=== PATIENT | female | born 2000 | race Two or more races ===

== ENCOUNTER 2024-11-23 09:17 | Emergency (ER) | payer MEDICAID, OTHER ==
[~2024-11-23] VITALS: Ht 160 cm; Wt 79.5 kg
--- NOTE | 2024-11-23 10:18 | ED.PDOC ---
GI ASSESSMENT HPI Comments A 24 YEAR OLD FEMALE PRESENTS TO THE ED WITH COMPLAINT OF CONSTIPATION AND MILD RECTAL BLEEDING. PATIENT STATES SHE HAS BEEN EXPERIENCING CONSTIPATION FOR THE PAST 4 DAYS AND NOTICED A SMALL AMOUNT OF BLOOD IN HER STOOL TODAY, PROMPTING HER TO COME TO THE ED FOR EVALUATION. PATIENT DENIES FEVER, CHILLS, SHORTNESS OF BREATH, CHEST PAIN, ABDOMINAL PAIN, NAUSEA, VOMITING, HEADACHE, OR OTHER COMPLAINTS. NO OTHER SYMPTOMS OR MODIFYING FACTORS AT THIS TIME. PATIENT IS ALERT, ORIENTED X 4, AND HAS STEADY GAIT. Chief Complaint: Constipation Time Seen by MD: 09:18 Reviewed Notes: Nurses Notes, Medications, Allergies Allergies: Coded Allergies: NO KNOWN ALLERGIES (Unverified , 11/23/24) Home Meds Active Scripts Hydrocortisone Acetate (Anusol-Hc) 25 Mg Sup, 1 SUPP IN BID, #20 SUPP Prov:LEXIS ESPOSITO 11/23/24 Ibuprofen (Ibuprofen) 800 Mg Tab, 1 TAB PO TID, #30 TAB Prov:LEXIS ESPOSITO 11/23/24 Lactulose (Lactulose) 10 Gm/15 Ml Martine, 30 ML PO BID, #300 ML Prov:LEXIS ESPOSITO 11/23/24 Information Source: Patient Mode of Arrival: Ambulatory Timing: Days Duration: Since onset, Days Prehospital treatment: None Quality: None Vomitus: None Stool: Impaction, Minimal Severity: Moderate Recent: None Recent Hx of: Constipation Pain Location: None Modifying Factors: Nothing Associated sign and symptoms: Constipation Past Medical History PAST MEDICAL HISTORY: Denies Surgical History: Denies all surgeries 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 History: No Pertinent 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 History Family History Family History: Reviewed,noncontributory to illness Social History Smoker: Non-Smoker Alcohol: Denies ETOH Use Drugs: Denies Drug Use Lives In: Home Constitutional: denies: chills, diaphoresis, fatigue, fever, malaise, sweats, weakness, others EENTM: denies: blurred vision, double vision, ear bleeding, ear discharge, ear drainage, ear pain, ear ringing, eye pain, eye redness, hearing loss, mouth pain, mouth swelling, nasal discharge, nose bleeding, nose congestion, nose pain, photophobia, tearing, throat pain, throat swelling, voice changes, others Respiratory: denies: cough, hemoptysis, orthopnea, SOB at rest, shortness of breath, SOB with excertion, stridor, wheezing, others Cardiovascular: denies: chest pain, dizzy spells, diaphoresis, Dyspnea on exertion, edema, irregular heart beat, left arm pain, lightheadedness, palpitations, PND, syncope, others Gastrointestinal: reports: constipated, others (MILD BLOOD IN STOOL); denies: abdomen distended, abdominal pain, blood streaked bowels, diarrhea, dysphagia, difficulty swallowing, hematemesis, melena, nausea, poor appetite, poor fluid intake, rectal bleeding, rectal pain, vomiting Genitourinary: denies: abnormal vagina bleeding, burning, dyspareunia, dysuria, flank pain, frequency, hematuria, incontinence, pain, , vagina discharge, urgency, others Neurological: denies: dizziness, fainting, headache, left sided numbness, left sided weakness, numbness, paresthesia, pre-existing deficit, right sided numbness, right sided weakness, seizure, speech problems, tingling, tremors, weakness, others Musculoskeletal: denies: back pain, gout, joint pain, joint swelling, muscle pain, muscle stiffness, neck pain, others Integumetry: denies: bruises, change in color, change in hair/nails, dryness, laceration, lesions, lumps, rash, wounds, others Allergic/Immunocompromised: denies: Difficulty Healing, Frequent Infections, Hives, Itching, others Hematologic/Lymphatic: denies: anemia, blood clots, easy bleeding, easy bruising, swollen glands, others Endocrine: denies: excessive hunger, excessive sweating, excessive thirst, excessive urination, flushing, intolerance to cold, intolerance to heat, unexplained weight gain, unexplained weight loss, others Psychiatric: denies: anxiety, bipolar disorder, depression, hopeless, panic disorder, schizophrenia, sleepless, suicidal, others All Other Systems: Reviewed and Negative Physical Exam General Appearance: No Apparent Distress, Normal HEENT: Normal ENT Inspection, PERRL/EOMI, Pharynx Normal, TMs Normal Neck: Full Range of Motion, Non-Tender, Normal, Normal Inspection Respiratory: Chest Non-Tender, Lungs Clear, No Accessory Muscle Use, No Respiratory Distress, Normal Breath Sounds Cardiovascular: No Edema, No JVD, No Murmur, No Gallop, Normal Peripheral Pulses, Regular Rate/Rhythm Breast Exam: Deferred Gastrointestinal: No Organomegaly, Non Tender, No Pulsatile Mass, Normal Bowel Sounds, Soft Genitalia: Deferred Pelvic: Deferred Rectal: Hemorrhoids, Normal rectal tone, Tenderness (AROUND RECTAL REGION WITH A SMALL EXTERNAL HEMORRHOID, NO BLEEDING AND BLOOD CLOTS. 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 Was a procedure done?: No GI differential Dx Differential Diagnosis: Constipation Other Differential Diagnosis EXTERNAL/INTERNAL, ANAL FISSURE X-Ray, Labs, Meds, VS Vital Signs Date Time Temp Pulse Resp B/P (MAP) Pulse Ox O2 Delivery O2 Flow Rate FiO2 11/23/24 11:02 97.6 61 15 134/88 (103) 97 97.6 11/23/24 11:02 61 15 97 Room Air 11/23/24 09:19 97.0 70 18 132/78 100 97.0 Date: 11/23/2024 10:08 AM Examination: XY KUB ABDOMEN SINGLE VIEW History: CONSTIPATION Comparison: None TECHNIQUE: Frontal views of the abdomen was obtained. FINDINGS: Bowel gas pattern is unremarkable. The lung bases are unremarkable. No acute osseous abnormality identified. IMPRESSION: Nonobstructive bowel gas pattern. Large stool burden. ATED BY: CAMERON OSCAR MD DICTATED DATE/TIME: 11/23/24 104 SIGNED BY: CAMERON OSCAR MD SIGNED DATE/TIME: 11/23/24 104 CC: X-Ray, Labs, Meds, VS Comment EXTERNAL MEDICAL RECORDS REVIEWED: [NONE] INDEPENDENT HISTORIANS: [NONE] SOCIAL DETERMINANTS OF HEALTH: [NONE] LABS ORDERED: NONE REVIEWED AND INTERPRETED RESULTS: NONE IMAGING ORDERED: XR ABDOMEN (KUB) TREATMENTS ORDERED: NONE PROCEDURES PERFORMED: NONE CRITICAL CARE TIME: NONE I HAVE DISCUSSED THE PATIENT WITH THE ATTENDING PHYSICIAN DR. MCCAIN AND HE AGREES WITH THE PATIENT'S PLAN OF CARE AND DISPOSITION. BASED ON HISTORY OF PRESENT ILLNESS, AND PHYSICAL EXAM, PATIENT WILL BE DISCHARGED HOME. DISCUSSED PLAN FOR DISCHARGE HOME WITH RX [ANUSOL CREAM AND IBUPROFEN 800 MG]. MEDICATION WARNINGS GIVEN. SHARED DECISION MAKING: DISCUSSED WITH PATIENT THAT THEIR WORKUP WAS NORMAL. PATIENT INSTRUCTED TO FOLLOW UP WITH PRIMARY CARE PROVIDER IN 1-2 DAYS FOR RE- EVALUATION OF SYMPTOMS. PATIENT VERBALIZES UNDERSTANDING TO RETURN TO ED FOR NEW OR WORSENING SYMPTOMS OR IF FOLLOW UP WITH PCP CANNOT BE OBTAINED. PATIENT FEELS COMFORTABLE GOING HOME AT THIS TIME. ALL QUESTIONS ADDRESSED AT TIME OF DI CLARISSA. Images Reviewed?: Images reviewed and evaluated by me Time of 1ST Reevaluation: : Reevaluation 1ST: Improved Patient Education/Counseling: Diagnosis, Treatment, Need For Follow Up Family Education/Counseling: Diagnosis, Treatment, Need For Follow Up Medical Screening: No EMC Exist At This Time SEPSIS Sepsis Screen Date sepsis recognized/suspect: Nov 23, 2024 Time Sepsis recognized/suspect: 919 Recent Procedure: No On Antibiotic Therapy: No Respiratory Rate >20: No Heart Rate >90: No Temp<36 C (96.8 F) or >38.3 C: No SBP <90 or MAP <65 mmHG: No New Acute Mental Status Change: No Is the patient on CPAP, BIPAP,: No Physician Orders Kub Abdomen Single View (11/23/24 10:05) Vital Signs Date Time Temp Pulse Resp B/P (MAP) Pulse Ox O2 Delivery O2 Flow Rate FiO2 11/23/24 11:02 97.6 61 15 134/88 (103) 97 97.6 11/23/24 11:02 61 15 97 Room Air 11/23/24 09:19 97.0 70 18 132/78 100 97.0 Departure 1 Departure Time of Disposition: : Impression: Primary Impression: Acute constipation Additional Impression: External hemorrhoids Disposition: HOME / SELF CARE / HOMELESS Condition: Stable Additional Instructions: FOLLOW-UP WITH PCP IN 1 TO 2 DAYS. TAKE MEDICATIONS PRESCRIBED. RETURN TO ED FOR ANY NEW OR WORSENING SYMPTOMS. e-Prescriptions Hydrocortisone Acetate (Anusol-Hc) 25 Mg Sup 1 SUPP IN BID, #20 SUPP Prov: LEXIS ESPOSITO 11/23/24 Ibuprofen (Ibuprofen) 800 Mg Tab 1 TAB PO TID, #30 TAB Prov: LEXIS ESPOSITO 11/23/24 Lactulose (Lactulose) 10 Gm/15 Ml Martine 30 ML PO BID, #300 ML Prov: LEXIS ESPOSITO 11/23/24 Discharged With: Self Critical Care Note Critical Care Time?: No Stability Stability form required: No I personally scribed for LEXIS ESPOSITO ([email or web address]) on 11/23/24 at 10:18. Electronically submitted by French Duggan ([employer]). I personally scribed for LEXIS ESPOSITO ([email or web address]) on 11/23/24 at 10:48. Electronically submitted by French Duggan ([employer]). I personally scribed for LEXIS ESPOSITO ([email or web address]) on 11/23/24 at 10:59. Electronically submitted by French Duggan ([employer]). LEXIS ESPOSITO Nov 23, 2024 10:18
--- NOTE | 2024-11-23 10:45 | DVH ---
Date: 11/23/2024 10:08 AM Examination: XY KUB ABDOMEN SINGLE VIEW History: CONSTIPATION Comparison: None TECHNIQUE: Frontal views of the abdomen was obtained. FINDINGS: Bowel gas pattern is unremarkable. The lung bases are unremarkable. No acute osseous abnormality identified. IMPRESSION: Nonobstructive bowel gas pattern. Large stool burden.
[2024-11-23] MEDS ORDERED: LACT10SO3 PO (11:00)
[2024-11-23] MEDS ORDERED: IBUP-1456 PO (11:00)
[2024-11-23] MEDS ORDERED: HYDR25SU21 PR (11:00)
[2024-11-23 11:02] VITALS: BP 134/88; PULSE 61; RESP 15; TEMP 97.6; O2SAT 97
== END 2024-11-23 11:04 | disposition home or self-care (01) ==
LOC: ER 09:17
DX: K59.09 Other constipation (principal); K64.4 Residual hemorrhoidal skin tags; Z79.1 Long term (current) use of non-steroidal anti-inflammatories (NSAID); Z79.899 Other long term (current) drug therapy
CPT/HCPCS: 74018